=== PATIENT | male | born 1990 | race African-American/Black ===

== ENCOUNTER 2017-06-20 18:15 | Emergency (ER) | payer MEDICAID, OTHER ==
[~2017-06-20] VITALS: Ht 182.9 cm; Wt 96.0 kg
[2017-06-20 19:15] VITALS: BP 125/86
== END 2017-06-20 22:30 | disposition left against medical advice (07) ==
LOC: ER 18:15
DX: Z53.21 Procedure and treatment not carried out due to patient leaving prior to being seen by health care provider (principal); F17.210 Nicotine dependence, cigarettes, uncomplicated; Z88.0 Allergy status to penicillin

== ENCOUNTER 2019-09-29 14:13 | Emergency (ER) | payer OTHER ==
[~2019-09-29] VITALS: Ht 188 cm; Wt 110.0 kg
[2019-09-29] MEDS ORDERED: KETOROLAC 30MG/ML VIAL IV STA (15:54)
[2019-09-29] MEDS ORDERED: SODIUM CHLORIDE 0.9% 1,000 ML IV ONE (15:54)
[2019-09-29] MEDS ORDERED: METOCLOPRAMIDE HCL 10MG/2ML VIAL IV ONE (16:00)
[2019-09-29 17:40] VITALS: BP 138/85
== END 2019-09-29 18:09 | disposition home or self-care (01) ==
LOC: ER 14:13
DX: R51 Headache (principal); R20.0 Anesthesia of skin; R03.0 Elevated blood-pressure reading, without diagnosis of hypertension; Z72.0 Tobacco use
CPT/HCPCS: 82962; 96361; 96374; 96375; 99283; J1885; J2765; J7030; Z7610

== ENCOUNTER 2024-02-23 15:55 | Emergency (ER) | payer OTHER ==
[~2024-02-23] VITALS: Ht 190.5 cm; Wt 140.0 kg
[2024-02-23 16:04] VITALS: BP 153/87; O2SAT 100
[2024-02-23] MEDS ORDERED: SULF1TAB48 MT (18:06)
[2024-02-23 18:28] VITALS: PULSE 68; RESP 12; TEMP 97.8
== END 2024-02-23 20:00 | disposition home or self-care (01) ==
LOC: ER 15:55
DX: S80.862A Insect bite (nonvenomous), left lower leg, initial encounter (principal); L97.222 Non-pressure chronic ulcer of left calf with fat layer exposed; J45.909 Unspecified asthma, uncomplicated; W57.XXXA Bitten or stung by nonvenomous insect and other nonvenomous arthropods, initial encounter; Y93.89 Activity, other specified; Y92.89 Other specified places as the place of occurrence of the external cause; Y99.8 Other external cause status
CPT/HCPCS: 99281; 99283